=== PATIENT | female | born 1950 | race Caucasian/White ===

== ENCOUNTER 2021-02-25 15:09 | Emergency (ER) | payer OTHER ==
--- OUTSIDE RECORDS SUMMARY | 2021-02-25 15:12 | XMS REPORT | Continuity of Care Document ---
:1950 Author Organization [facility] t Address [address] [place] [address] Care Team Providers Name Role Phone Unavailable Unavailable Unavailable Problems This patient has no known problems. Allergies, Adverse Reactions, Alerts This patient has no known allergies or adverse reactions. Medications Ordered Filled Start Stop Current Ordering Indication Dosage Frequency Signature Comments Components Source Medication Medication Date Date Medication? Clinician (SIG) Name Name Blood Blood 2018-06 Yes Allie [address] [facility] Glucose Glucose 0-03 [facility] directed [facility] Monitor Monitor 00:00: (DISPENSE Me moria 00 BLOOD l GLUCOSE Outpati MONITOR ent FORMULARY Clinics TO INSURANCE) Blood Blood 2018-06 Yes Allie as [facility] Glucose Glucose 0-03 [facility] directed [facility] - Test Strip Test Strip 00:00: (DISPENSE Mem[facility] 00 BLOOD l GLUCOSE Outpati TEST ent STRIPS Clinics FORMULARY TO INSURANCE) Lancets Lancets 2018-06 Yes Allie as [facility] 0-03 [facility] directed [facility] - 00:[facility]: (dispense [facility] 00 lancets l formulary Outpati to ent insurance) Clinics FreeStyle FreeStyle 2018- Yes [facility]ie as [facility] 14 6-25 Millender directed [facility] - Day Sensor Day Sensor 00:00: M emoria 00 l Outpati ent Clinics Metformin Metformin 2018- Yes Allie [address] [facility] HCl HCl 6-25 Millender with a [facility] - 00:00: meal [facility] 00 l Outpati ent Clinics FreeStyle FreeStyle 2018- Yes [facility]ie as [facility] 6-25 Millender directed [facility] - Berkley Berkley 00:00: [facility] 00 l Outpati ent Clinics Fluticasone Fluticasone Yes Allie [address] [facility] Propionate Propionate 5-17 Millender each [facility] - 00:00: nostril [facility] 00 [facility] Outpati ent Clinics Lipitor Lipitor Yes Allie [address] 2-28 Millender [facility] - 00:[facility]: [facility] 00 [facility] Clin[facility] Citalopram Citalopram Yes Allie [address] [facility] Hydrobromid Hydrobromid 2-28 Millender [facility] - e e 00:00: [facility] 00 [facility] Clinics Metformin Metformin Yes Allie [address] [facility] HCl HCl Millender with a [facility] - meal [facility] Clin[facility] Immunizations Ordered Filled Immunization Date Status Comments Sour e Immunization Name Name FLUZONE HIGH DOSE FLUZONE HIGH DOSE 2019-03-[address] [facility] - OVER 65 OVER 65 00:00:00 [facility] FLUZONE HIGH DOSE FLUZONE HIGH DOSE 2018-07-[address] [facility] - OVER 65 OVER 65 00:00:00 [facility] Procedures This patient has no known procedures. Encounters Start End Encounter Admission Attending Care Care Encounter Source Date/Time Date/Time Type Type Clinicians Facility Department ID 2020-12-30 2020-12-[address] [facility] [id number] [facility] 2020-09-29 2020-09-29 Outpatient [facility] [id number] [facility] 2020-04-09 2020-04-09 [facility] [id number] [facility] 2020-04-03 2020-04-03 Outpatient [facility] [id number] [facility] 2020-02-24 2020-02-24 [facility] [id number] [facility] 11[facility]00[facility]00 11:00:[address] [facility] 2019-11-25 2019-11-25 [facility] [id number] 10:42:00 10:42:00 t [facility] Medicine Outpati ent Clinics 2019-05-03 2019-05-03 [facility] [id number] 16[facility]40:00 16:40:00 t [facility] Medicine Outpati ent Clinics 2019-04-23 2019-04-23 [facility] [id number] 09:00:00 09:00:00 t [facility] Medicine Outpati ent Clinics 2019-03-28 2019-03-28 [facility] [id number] [facility] 13:40:00 13:40:00 [facility] Medicine Outpati ent Clinics 2019-01-15 2019-01-15 [facility] [id number] [address] 08:45:00 08:45:00 t [facility] Medicine Outpati ent Clinics 2018-12-18 2018-12-18 [facility] [id number] [address] 10:20:00 10:20:00 t [facility] Medicine Outpati ent Clinics 2018-07-02 2018-07-02 [facility] [id number] [facility] [address] 09:30:00 09:30:00 t [facility] Medicine Medicine Outpati ent Clinics 2018-03-29 2018-03-29 [facility] [id number] 10:00:00 10:00:00 t [facility] Medicine Outpati ent Clinics 2018-03-29 2018-03-29 [facility] [id number] [address] 08:29:00 08:29:00 t [facility] Medicine Outpati ent Clinics 2018-01-03 2018-01-03 [facility] [id number] [facility] 23:07:00 23:07:00 [facility] ent [facility] 2018-01-03 2018-01-03 Outpatient Aaron Caban [id number] 15:15:00 15:15:[address] [facility] ent Clinics Results This patient has no known results.
--- NOTE | 2021-02-25 15:28 | RAD REPORT ---
EXAM DESCRIPTION: CT - Ct Stroke Brain Wo Cont - 02/25/2021 3:21 pm CLINICAL HISTORY: weakness, numbness Headache, CVA COMPARISON: No comparisons TECHNIQUE: All CT scans are performed using dose optimization technique as appropriate and may inclu de automated exposure control or mA/KV adjustment according to patient size. FINDINGS: No intracranial hemorrhage, hydrocephalus or extra-axial fluid collection.Mildly diminishe d density is seen in the left temporoparietal region which could indicate early ischemia.No areas of brain edema or evidence of midline shift. The paranasal sinuses and mastoids are clear. The calvarium is intact. IMPRESSION: Findings of early ischemia may be present in the left temporoparietal region. Recommend MRI brain for further assessment. No acute bleed. The findings were discussed with Sina in the emergency room on 02/25/2021 at 3:23 p.m. by telephone.
[2021-02-25 15:42] LABS: Basophils % 0.9 % (0-1.3); Hematocrit 37.4 % (36.0-45.0); Lymphocytes % 41.8 % (15.3-44.8); MPV 8.2 fL (7.6-11.3); RBC Red Blood Cell Count 4.33 M/uL (3.86-4.86)
[2021-02-25 15:46] LABS: Protime INR 1.08
--- NOTE | 2021-02-25 15:57 | RAD REPORT ---
EXAM DESCRIPTION: RAD - Chest Single View - 02/25/2021 3:48 pm CLINICAL HISTORY: weakness Chest pain. COMPARISON: Chest Single View dated 07/04/2016 FINDINGS: Portable technique limits examination quality. The lungs are grossly clear. The heart is normal in size. No displaced fractures. IMPRESSION: No acute intrathoracic process suspected.
[2021-02-25 15:58] LABS: ALT/SGPT 18 U/L (12-78); AST/SGOT 9 U/L (15-37); Albumin 3.6 g/dL (3.4-5.0); Alkaline Phosphatase 118 U/L (45-117); BUN Blood Urea Nitrogen 15 mg/dL (7-18); Bicarbonate 25 mmol/L (21-32); Bilirubin Direct < 0.1 mg/dL (0-0.2); Bilirubin Total 0.3 mg/dL (0.2-1.0); Glucose Level 134 mg/dL (74-106); Magnesium 1.9 mg/dL (1.8-2.4); NT PRO-BNP 204 pg/mL (<125); Potassium 3.6 mmol/L (3.5-5.1); Protein, Total 7.7 g/dL (6.4-8.2); Sodium Level 140 mmol/L (136-145); Troponin (Emerg Dept Use Only) < 0.02 ng/mL (0.0-0.045)
[2021-02-25] MEDS ORDERED: ASPIRIN 81 MG CHEWABLE TABLET ONE (16:08)
[2021-02-25] MEDS ORDERED: FOLIC ACID 5 MG/ML VIAL ONE (16:09)
[2021-02-25] MEDS ORDERED: NA CHLORIDE 0.9% 1,000 ML ONE (16:23)
--- NOTE | 2021-02-25 16:42 | RAD REPORT ---
EXAM DESCRIPTION: CT - Head angio - 02/25/2021 4:32 pm CLINICAL HISTORY: NUMBNESS Headache, drowsiness, CVA symptomology COMPARISON: Ct Stroke Brain Wo Cont dated 02/25/2021 TECHNIQUE: CT angiography of the head was performed with MIPs. All CT scans are performed using dose optimization technique as appropriate and may include automated exposure control or mA/KV adjustment according to patient size. FINDINGS: No evidence of aneurysm is detected. No flow-limiting stenosis or vascular malformation id entified. Antegrade flow is seen in the vertebral arteries. The vertebral arteries are codominant. The visualized dural venous sinuses are patent. IMPRESSION: No significant flow abnormality is detected.
--- NOTE | 2021-02-25 16:47 | RAD REPORT ---
EXAM DESCRIPTION: CT - Neck Angio - 02/25/2021 4:32 pm CLINICAL HISTORY: weakness, numbness Headache, drowsiness, CVA symptomology COMPARISON: No comparisons TECHNIQUE: CT angiography of the neck vessels was performed with MIPs. All CT scans are performed using dose optimization technique as appropriate and may include automated exposure control or mA/KV adjustment according to patient size. FINDINGS: A left aortic arch is identified with normal three vessel configuration of the great vesse ls. No significant flow abnormality is seen of the common carotid bilaterally. No significant stenosis is identified involving the cervical segments of both internal carotid arteri es. Normal flow is seen within both vertebral arteries. IMPRESSION: No significant flow abnormality of the neck vessels is identified.
--- NOTE | 2021-02-25 17:08 | RAD REPORT ---
EXAM DESCRIPTION: MRI - Brain Wo Cont - 02/25/2021 4:59 pm CLINICAL HISTORY: WEAKNESS Headache, drowsiness, CVA symptomology COMPARISON: Head angio dated 02/25/2021 TECHNIQUE: Multi-sequence, multiplanar MR imaging of the brain was performed without contrast. FINDINGS: No intracranial hemorrhage, hydrocephalus or extra-axial fluid collections.Multiple areas of T2 and FLAIR hyperintensity in the periventricular and deep white matter likely represent chronic microvascular ischemia. No edema or shift of midline structures. No findings to suspect brain mass. D WI is negative for acute CVA. Midline structures are normally formed. Mastoid air cells and paranasal sinuses are clear. IMPRESSION: Negative for acute CVA or other acute intracranial process.
[2021-02-25] MEDS ORDERED: DIAZEPAM 10 MG/2 ML INJ SYRINGE ONE (17:40)
--- NOTE | 2021-02-25 19:08 | EDPHYS ---
Physician Documentation [facility] Name: Maya Kang Age: 71 yrs Sex: Female : 1950 Arrival Date: 02/25/2021 Time: 15:11 Bed 2 Private MD: Giovanni Bronson HPI: 02/25 15:13 This 71 yrs old Female presents to ER via Wheelchair with complaints of jmm Numbness, Dizziness, Weakness, Breathing Difficulty. 15:13 The patient's problem is reported as paresthesias, all over. Onset: The jmm symptoms/episode began/occurred acutely, just prior to arrival. Duration: This was a single incident. The symptoms are alleviated by nothing. The symptoms are aggravated by nothing. Associated signs and symptoms: Pertinent negatives: chest pain, combativeness, confusion, diaphoresis, diarrhea. Is a 71-year-old female with history of hyperlipidemia and glaucoma that presents to the emergency department with complaints of generalized paresthesias, weakness. Patient states having a little more weakness on her left side. Denies chest pain. Historical: - Allergies: 15:43 No Known Allergies; ss - PMHx: 15:43 Glaucoma; High cholesterol; ss - Immunization history:: Adult Immunizations up to date, Client reports receiving the Phan \\T\\ Phan single-dose vaccine. - Social history:: Smoking status: Patient denies any tobacco usage or history of. ROS: 15:13 Constitutional: Positive for fatigue. jmm 15:13 Neuro: Positive for tingling, weakness. 15:13 All other systems are negative. Exam: 15:13 Radiologist reports: Possible left temporal CVA jmm 15:13 Head/Face: atraumatic. Eyes: EOMI, no conjunctival erythema appreciated ENT: Moist Mucus Membranes 15:13 Neck: Trachea midline, Supple Chest/axilla: Normal chest wall appearance and motion. Cardiovascular: Regular rate and rhythm. No edema appreciated Respiratory: Normal respirations, no respiratory distress appreciated Abdomen/GI: Non distended, soft Back: Normal ROM Skin: General appearance color normal 15:13 Constitutional: The patient appears alert, awake, anxious. 15:13 Musculoskeletal/extremity: ROM: intact in all extremities. 15:13 Skin: Appearance: Color: normal in color. 15:13 Neuro: Orientation: is normal, Mentation: is normal, Memory: is normal. 15:13 Neuro: Motor: is normal, Sensation: is normal, no obvious gross deficits, No pronator drift appreciated. 15:13 Psych: Behavior/mood is pleasant, cooperative, anxious. Vital Signs: 15:11 BP 139 / 73; Pulse 93; Resp 18; Temp 98.7(O); Pulse Ox 100% on R/A; Weight 77.11 kg; ss Height 5 ft. 0 in. (152.40 cm); Pain 0/10; 16:15 BP 134 / 70; Pulse 96; Resp 16; Pulse Ox 100% ; sv 17:15 BP 125 / 55; Pulse 90; Resp 16; Pulse Ox 100% ; sv 18:23 BP 132 / 71; Pulse 106; Resp 14; Pulse Ox 99% on R/A; hb 15:11 Body Mass Index 33.20 (77.11 kg, 152.40 cm) ss NIH Stroke Scale Scores: 15:47 NIHSS Score: 0 ss 15:50 NIHSS Score: 1 sv MDM: 15:23 Patient medically screened. [facility] 19:05 Data reviewed: vital signs, nurses notes. Counseling: I had a detailed discussion with red the patient and/or guardian regarding: the historical points, exam findings, and any diagnostic results supporting the discharge/admit diagnosis, lab results, radiology results, the need for outpatient follow up, to return to the emergency department if symptoms worsen or persist or if there are any questions or concerns that arise at home. ED course: Discussed the patient with the patient's daughter whom stated that she had mistaken to CBD Gummies for candy just prior to developing the symptoms. MRI is negative, labs and imaging studies were negative for an acute CVA. Patient states she now feels normal. Plan I do not suspect a CVA/TIA, most likely adverse reaction to accidental ingestion. Patient advised to follow-up PCP and otherwise given strict return precautions. Patient/daughter understood and agreed with plan of care.. 02/25 15:13 Order name: Basic Metabolic Panel; Complete Time: 16:08 [facility] 02/25 15:13 Order name: CBC with Diff; Complete Time: 15:45 [facility] 02/25 15:13 Order name: LFT's; Complete Time: 16:08 [facility] 02/25 15:13 Order name: Magnesium; Complete Time: 16:08 [facility] 02/25 15:13 Order name: NT PRO-BNP; Complete Time: 16:08 [facility] 02/25 15:13 Order name: PT-INR; Complete Time: 15:48 [facility] 02/25 15:13 Order name: Troponin (emerg Dept Use Only); Complete Time: 16:08 [facility] 02/25 15:13 Order name: XRAY Chest (1 view); Complete Time: 16:08 [facility] 02/25 15:13 Order name: CT Stroke Brain w/o Contrast; Complete Time: 15:30 [facility] 02/25 15:25 Order name: MRI - Brain Wo Cont; Complete Time: 17:11 [facility] 02/25 15:38 Order name: Glucose, Ancillary Testing; Complete Time: 15:39 [facility] 02/25 16:25 Order name: COVID-19 : Document "Date of Symptom Onset" if Symptomatic. [facility] 02/25 16:25 Order name: CORONAVIRUS [facility] 02/25 15:13 Order name: EKG; Complete Time: 15:13 [facility] 02/25 15:13 Order name: Cardiac monitoring; Complete Time: 15:47 [facility] 02/25 15:13 Order name: EKG - Nurse/Tech; Complete Time: 15:47 [facility] 02/25 15:13 Order name: IV Saline Lock; Complete Time: 15:47 [facility] 02/25 15:13 Order name: Labs collected and sent; Complete Time: 15:47 [facility] 02/25 15:13 Order name: O2 Per Protocol; Complete Time: 15:47 [facility] 02/25 15:13 Order name: O2 Sat Monitoring; Complete Time: 15:47 [facility] 02/25 15:27 Order name: Head Angio CT; Complete Time: 16:45 [facility] 02/25 15:27 Order name: CT Neck Angio; Complete Time: 16:59 [facility] Administered Medications: 15:50 Drug: Aspirin Chewable Tablet 324 mg Route: PO; sv 16:04 Follow up: Response: No adverse reaction sv 16:03 Drug: foLIC Acid 1 mg Route: IVPB; Site: left antecubital; sv 19:20 Follow up: IV Status: Completed infusion ea 16:03 Drug: NS 0.9% 1000 ml Route: IV; Rate: 1 bolus; Site: left antecubital; sv 17:00 Follow up: Response: No adverse reaction; IV Status: Completed infusion; IV Intake: sv 1000ml 17:21 Drug: Valium (diazepam) 2 mg Route: IVP; Site: left antecubital; sv 18:35 Follow up: Response: No adverse reaction sv Disposition: 02/26 08:18 Co-signature as Attending Physician, Giovanni Peres MD I agree with the assessment and wade plan of care. Disposition Summary: 02/25/21 19:07 Discharge Ordered Location: Home [facility] Condition: Stable jm Diagnosis - Accidental ingestion of CBD gummy jm - Paresthesias [facility] Followup: jm - With: Private Physician - When: 2 - 3 days - Reason: Recheck today's complaints, Continuance of care, Re-evaluation by your physician Discharge Instructions: - Discharge Summary Sheet [facility] - Paresthesia [facility] Forms: - Medication Reconciliation Form [facility] - Thank You Letter [facility] - Antibiotic Education [facility] - Prescription Opioid Use [facility] NIH Stroke Scale - NIH Stroke Score Date: 02/25/2021 Time: 15:47 Total Score = 0 1a. Level of Consciousness (LOC) - 0(Alert) 1b. Level of Consciousness (LOC) (Month \\T\\ Age) - 0(Both) 1c. LOC Commands (Open \\T\\ Closes Eyes/Library Aide) - 0(Both) 2. Best Gaze (Lateral Gaze Paresis) - 0(Normal) 3. Visual Field Loss - 0(No visual loss) 4. Facial Palsy - 0(Normal) 5a. Left Arm: Motor (10-second hold) - 0(No drift) 5b. Right Arm: Motor (10-second hold) - 0(No drift) 6a. Left Leg: Motor (5-second hold - always test supine) - 0(No drift) 6b. Right Leg: Motor (5-second hold - always test supine) - 0(No drift) 7. Limb Ataxia (finger/nose \\T\\ heel/zacarias - test with eyes open) - 0(Absent) 8. Sensory Loss (pinprick arms/legs/face) - 0(Normal) 9. Best Language: Aphasia (description/naming/reading) - 0(No aphasia) 10. Dysarthria (speech clarity - read or repeat words) - 0(Normal) 11. Extinction and Inattention (visual/tactile/auditory/spatial/personal) - 0(No abnormality) Initials: NIH Stroke Scale - NIH Stroke Score Date: 02/25/2021 Time: 15:50 Total Score = 1 1a. Level of Consciousness (LOC) - 0(Alert) 1b. Level of Consciousness (LOC) (Month \\T\\ Age) - 0(Both) 1c. LOC Commands (Open \\T\\ Closes Eyes/Library Aide) - 0(Both) 2. Best Gaze (Lateral Gaze Paresis) - 0(Normal) 3. Visual Field Loss - 0(No visual loss) 4. Facial Palsy - 0(Normal) 5a. Left Arm: Motor (10-second hold) - 0(No drift) 5b. Right Arm: Motor (10-second hold) - 0(No drift) 6a. Left Leg: Motor (5-second hold - always test supine) - 0(No drift) 6b. Right Leg: Motor (5-second hold - always test supine) - 0(No drift) 7. Limb Ataxia (finger/nose \\T\\ heel/zacarias - test with eyes open) - 0(Absent) 8. Sensory Loss (pinprick arms/legs/face) - 1(Mild to moderate loss) 9. Best Language: Aphasia (description/naming/reading) - 0(No aphasia) 10. Dysarthria (speech clarity - read or repeat words) - 0(Normal) 11. Extinction and Inattention (visual/tactile/auditory/spatial/personal) - 0(No abnormality) Initials: sv Signatures: Dispatcher [employer] Leona Christianson, Giovanni De La Paz RN, MD MD cha Mickail, Joel, PA PA jmm Smirch, Shelby, RN RN Pretty Hector RN, ea
--- NOTE | 2021-02-25 19:08 | ER ---
Nurse's Notes [facility] Name: Maya Kang Age: 71 yrs Sex: Female : 1950 Arrival Date: 02/25/2021 Time: 15:11 Bed 2 Private MD: Diagnosis: Accidental ingestion of CBD gummy;Paresthesias Presentation: 02/25 15:11 Chief complaint: Patient states: Pt reports about an hour ago while watching TV she ss began to experience sudden onset of feeling weak, more on L than the right and having tremors to R side. Coronavirus screen: Client denies travel out of the [place] in the last 14 days. Ebola Screen: Patient denies exposure to infectious person. Patient denies travel to an Ebola-affected area in the 21 days before illness onset. An acute neurological deficit is present. Pre-hospital glucose is not applicable to this patient. Initial Sepsis Screen: Does the patient meet any 2 criteria? Does the patient have a suspected source of infection? No. Patient's initial sepsis screen is negative. Risk Assessment: Do you want to hurt yourself or someone else? Patient reports no desire to harm self or others. Onset of symptoms was February 25, 2021. 15:11 Method Of Arrival: Wheelchair ss 15:12 Acuity: LYNDON 2 hb Triage Assessment: 15:43 The onset of the patients symptoms was February 25, 2021 at 14:45. ss Stroke Activation: Symptom onset < 3 hours Physician: Stroke Attending; Name: ; Notified At: ; Arrived At: Physician: Chief Stroke Resident; Name: ; Notified At: ; Arrived At: Physician: Stroke Resident; Name: ; Notified At: ; Arrived At: Physician: ED Attending; Name: ; Notified At: ; Arrived At: Physician: ED Resident; Name: ; Notified At: ; Arrived At: Historical: - Allergies: 15:43 No Known Allergies; ss - PMHx: 15:43 Glaucoma; High cholesterol; ss - Immunization history:: Adult Immunizations up to date, Client reports receiving the Phan \\T\\ Phan single-dose vaccine. - Social history:: Smoking status: Patient denies any tobacco usage or history of. Screenin:45 Patient has been NPO before screening. The patient is alert, able to follow commands. sv The patient does not exhibit slurred or garbled speech The patient is not exhibiting difficulty speaking. The patient does not exhibit difficulty understanding words. The patient is able to swallow own secretions with no drooling or need for suction. Patient tolerated one teaspoon of water. No drooling, immediate coughing, gurgling, or clearing of the throat was noted. The patient tolerated 90mL of water. No drooling, immediate coughing, gurgling, or clearing of the throat was noted. The patient passed the bedside swallow screening. Oral medications may be given as ordered. Contact Physician for further diet orders. Provider notified of bedside swallow screening results: Sina SMITH 15:47 Abuse screen: Denies threats or abuse. Denies injuries from another. Nutritional ss screening: No deficits noted. Tuberculosis screening: Never had TB. Fall Risk None identified. Assessment: 15:45 Patient has been NPO before screening. The patient is alert, and able to follow sv commands. The patient does not exhibit slurred or garbled speech. The patient is not exhibiting difficulty speaking. The patient does not exhibit difficulty understanding words. The patient is able to swallow own secretions with no drooling or need for suction. Patient tolerated one teaspoon of water. No drooling, immediate coughing, gurgling, or clearing of the throat was noted. The patient tolerated 90mL of water. No drooling, immediate coughing, gurgling, or clearing of the throat was noted. The patient passed the bedside swallow screening. Oral medications may be given as ordered. Contact Physician for further diet orders. Provider notified of bedside swallow screening results: Sina ABBOTT. T-PA (Activase) Screening:. General: Appears in no apparent distress. comfortable, well developed, Behavior is cooperative, appropriate for age, anxious, crying. Pain: Denies pain. Neuro: Level of Consciousness is awake, alert, obeys commands, Oriented to person, place, time, situation, Histopath Tech are weak on left Moves all extremities. Speech is normal, Facial symmetry appears normal, Facial symmetry: tongue is midline, Reports numbness in left occipital area, left congregational, left zygomatic area, left cheek and left base of the skull weakness in left arm and left leg. Cardiovascular: Patient's skin is warm and dry. Pulses are palpable in right radial artery and left radial artery Rhythm is sinus rhythm. Respiratory: Airway is patent Respiratory effort is even, unlabored, Respiratory pattern is regular, symmetrical. Derm: Skin is pink, warm \\T\\ dry. 15:50 VAN Scoring: Arm Drift: Patients demonstrates NO arm weakness. Patient is VAN Negative. sv 17:21 Reassessment: Patient appears in no apparent distress at this time. Patient and/or sv family updated on plan of care and expected duration. Pain level reassessed. Patient is alert, oriented x 3, equal unlabored respirations, skin warm/dry/pink. Patient states symptoms have improved. 18:23 Reassessment: Patient appears in no apparent distress at this time. Patient and/or hb family updated on plan of care and expected duration. Pain level reassessed. Patient is alert, oriented x 3, equal unlabored respirations, skin warm/dry/pink. 19:17 Reassessment: Patient and/or family updated on plan of care and expected duration. Pain ea level reassessed. Patient is alert, oriented x 3, equal unlabored respirations, skin warm/dry/pink. Discharge instruction given to patient and family, both verbalized the understanding of instruction. Pt left ED ambulatory tolerating well. Patient states feeling better. Vital Signs: 15:11 BP 139 / 73; Pulse 93; Resp 18; Temp 98.7(O); Pulse Ox 100% on R/A; Weight 77.11 kg; ss Height 5 ft. 0 in. (152.40 cm); Pain 0/10; 16:15 BP 134 / 70; Pulse 96; Resp 16; Pulse Ox 100% ; sv 17:15 BP 125 / 55; Pulse 90; Resp 16; Pulse Ox 100% ; sv 18:23 BP 132 / 71; Pulse 106; Resp 14; Pulse Ox 99% on R/A; hb 15:11 Body Mass Index 33.20 (77.11 kg, 152.40 cm) ss NIH Stroke Scale Scores: 15:47 NIHSS Score: 0 ss 15:50 NIHSS Score: 1 sv ED Course: 15:11 Patient arrived in ED. rg4 15:12 Sina Hoff PA is PHCP. red 15:12 Giovanni Peres MD is Attending Physician. jmm 15:21 CT Stroke Brain w/o Contrast In Process Unspecified. EDMS 15:22 Inserted saline lock: 20 gauge in left antecubital area, using aseptic technique. Blood ss collected. 15:42 Leona Rodriguez, RN is Primary Nurse. sv 15:43 Arm band placed on right wrist. ss 15:45 Patient has correct armband on for positive identification. Placed in gown. Bed in low sv position. Call light in reach. Side rails up X2. Adult w/ patient. monitoring tech on. Pulse ox on. NIBP on. Door closed. Warm blanket given. Head of bed elevated. 15:47 XRAY Chest (1 view) In Process Unspecified. EDMS 15:58 Triage completed. hb 16:[address] In Process Unspecified. EDMS 16:32 CT Neck Angio In Process Unspecified. EDMS 16:50 COVID-19 : Document "Date of Symptom Onset" if Symptomatic. Sent. sv 16:59 MRI - Brain Wo Cont In Process Unspecified. EDMS 17:06 Patient moved back from MRI. sv 19:06 Primary Nurse role handed off by Leona Rodriguez, RN sv 19:19 No provider procedures requiring assistance completed. IV discontinued, intact, ea bleeding controlled, No redness/swelling at site. Pressure dressing applied. Administered Medications: 15:50 Drug: Aspirin Chewable Tablet 324 mg Route: PO; sv 16:04 Follow up: Response: No adverse reaction sv 16:03 Drug: foLIC Acid 1 mg Route: IVPB; Site: left antecubital; sv 19:20 Follow up: IV Status: Completed infusion ea 16:03 Drug: NS 0.9% 1000 ml Route: IV; Rate: 1 bolus; Site: left antecubital; sv 17:00 Follow up: Response: No adverse reaction; IV Status: Completed infusion; IV Intake: sv 1000ml 17:21 Drug: Valium (diazepam) 2 mg Route: IVP; Site: left antecubital; sv 18:35 Follow up: Response: No adverse reaction sv Intake: 17:00 IV: 1000ml; Total: 1000ml. sv Outcome: 19:07 Discharge ordered by . red 19:19 Discharged to home ambulatory, with family. doug 19:19 Condition: stable 19:19 Discharge instructions given to patient, family, Instructed on discharge instructions, follow up and referral plans. Demonstrated understanding of instructions, follow-up care. 19:19 Patient left the ED. doug NIH Stroke Scale - NIH Stroke Score Date: 02/25/2021 Time: 15:47 Total Score = 0 1a. Level of Consciousness (LOC) - 0(Alert) 1b. Level of Consciousness (LOC) (Month \\T\\ Age) - 0(Both) 1c. LOC Commands (Open \\T\\ Closes Eyes/It Communications Specialist) - 0(Both) 2. Best Gaze (Lateral Gaze Paresis) - 0(Normal) 3. Visual Field Loss - 0(No visual loss) 4. Facial Palsy - 0(Normal) 5a. Left Arm: Motor (10-second hold) - 0(No drift) 5b. Right Arm: Motor (10-second hold) - 0(No drift) 6a. Left Leg: Motor (5-second hold - always test supine) - 0(No drift) 6b. Right Leg: Motor (5-second hold - always test supine) - 0(No drift) 7. Limb Ataxia (finger/nose \\T\\ heel/zacarias - test with eyes open) - 0(Absent) 8. Sensory Loss (pinprick arms/legs/face) - 0(Normal) 9. Best Language: Aphasia (description/naming/reading) - 0(No aphasia) 10. Dysarthria (speech clarity - read or repeat words) - 0(Normal) 11. Extinction and Inattention (visual/tactile/auditory/spatial/personal) - 0(No abnormality) Initials: NIH Stroke Scale - NIH Stroke Score Date: 02/25/2021 Time: 15:50 Total Score = 1 1a. Level of Consciousness (LOC) - 0(Alert) 1b. Level of Consciousness (LOC) (Month \\T\\ Age) - 0(Both) 1c. LOC Commands (Open \\T\\ Closes Eyes/It Communications Specialist) - 0(Both) 2. Best Gaze (Lateral Gaze Paresis) - 0(Normal) 3. Visual Field Loss - 0(No visual loss) 4. Facial Palsy - 0(Normal) 5a. Left Arm: Motor (10-second hold) - 0(No drift) 5b. Right Arm: Motor (10-second hold) - 0(No drift) 6a. Left Leg: Motor (5-second hold - always test supine) - 0(No drift) 6b. Right Leg: Motor (5-second hold - always test supine) - 0(No drift) 7. Limb Ataxia (finger/nose \\T\\ heel/zacarias - test with eyes open) - 0(Absent) 8. Sensory Loss (pinprick arms/legs/face) - 1(Mild to moderate loss) 9. Best Language: Aphasia (description/naming/reading) - 0(No aphasia) 10. Dysarthria (speech clarity - read or repeat words) - 0(Normal) 11. Extinction and Inattention (visual/tactile/auditory/spatial/personal) - 0(No abnormality) Initials: sv Signatures: Dispatcher [employer] Leona Christianson, RN Sina Gustafson PA PA jmm Smirch, Shelby, RN RN ss Leighann Bennett RN RN hb Garcia, Rubi rg4 Pretty Hector RN RN ea Corrections: (The following items were deleted from the chart) 16:06 15:50 NIHSS Score: 1 sv sv
[2021-02-25 19:26] VITALS: TEMP 98.7
[2021-02-25 19:30] VITALS: BP 132/71; O2SAT 99
--- NOTE | 2021-02-26 07:44 | EKG ---
Test Date: 2021-02-25 Test Time: 15:25:29 Billboard Erector: MIRIAM MEASUREMENT RESULTS: Intervals: Rate: 88 AL: 186 QRSD: 82 QT: 370 QTc: 447 [place]: P: 36 AL: 186 QRS: 5 T: 19 INTERPRETIVE STATEMENTS: Normal sinus rhythm Possible Anterior infarct, age undetermined Abnormal ECG Compared to ECG 12/09/2016 12:13:54 Myocardial infarct finding now present Electronically Signed On 02-26-21 07:41:55 CDT by Nolan Quezada
== END 2021-02-25 19:19 | disposition home or self-care (01) ==
LOC: ER 15:09
DX: R20.2 Paresthesia of skin (principal); T40.7X5A Adverse effect of cannabis (derivatives), initial encounter; E78.00 Pure hypercholesterolemia, unspecified; Z20.822 Contact with and (suspected) exposure to COVID-19
CPT/HCPCS: 96365; 93005; 85025; 80048; 36415; 83735; 85610; 82947; 80076; 84484; 83880; 70496; 70498; 70450; 71045; 70551; 96375; 99285; 96366; Q9967; J3360; J7030